=== PATIENT | female | born 1980 | race Caucasian/White ===

== ENCOUNTER → 2017-02-04 | Outpatient (CLI) | payer BC, OTHER | LOC: M WUC 13:05 | DX: R05 Cough (principal) | CPT/HCPCS: 71020 ==

== ENCOUNTER → 2022-02-05 | Outpatient (CLI) | payer OTHER | LOC: M RAD 06:53 → MERGE 07:30 | PROVIDERS: ATTEND Obstetrics & Gynecology | DX: Z36.2 Encounter for other antenatal screening follow-up (principal); O32.2XX0 Maternal care for transverse and oblique lie, not applicable or unspecified; Z3A.22 22 weeks gestation of pregnancy ==

== ENCOUNTER → 2022-03-03 | Outpatient (CLI) | payer OTHER ==
[2022-03-03 17:56] LABS: HEMATOCRIT 37.1 % (36.0-47.0); HEMOGLOBIN 11.9 g/dl (12.0-15.5); MEAN CORPUSCULAR HEMOGLOBIN 29.9 pg (27.0-33.0); MEAN CORPUSCULAR HGB CONC 32.1 g/dl (32.0-36.5); MEAN CORPUSCULAR VOLUME 93.2 fl (80.0-96.0); PLATELET COUNT, AUTOMATED 247 10^3/uL (150-450); RED BLOOD COUNT 3.98 10^6/uL (4.00-5.40); WHITE BLOOD COUNT 16.9 10^3/uL (4.0-10.0)
== END ==
LOC: M PLALAB 15:39
PROVIDERS: ATTEND Advanced Practice Midwife
DX: Z34.82 Encounter for supervision of other normal pregnancy, second trimester (principal)

== ENCOUNTER → 2022-03-16 | Outpatient (CLI) | payer OTHER | LOC: M RAD 14:58 | PROVIDERS: ATTEND Advanced Practice Midwife | DX: Z34.82 Encounter for supervision of other normal pregnancy, second trimester (principal); Z3A.27 27 weeks gestation of pregnancy; Z36.2 Encounter for other antenatal screening follow-up ==

== ENCOUNTER → 2022-04-21 | Outpatient (CLI) | payer OTHER | LOC: M WHC 13:08 | PROVIDERS: ATTEND Advanced Practice Midwife | DX: O24.113 Pre-existing type 2 diabetes mellitus, in pregnancy, third trimester (principal); Z3A.32 32 weeks gestation of pregnancy ==

== ENCOUNTER → 2022-05-07 | Outpatient (REF) | payer OTHER | LOC: M PLALAB 09:22 | PROVIDERS: ATTEND Advanced Practice Midwife | DX: O09.523 Supervision of elderly multigravida, third trimester (principal); Z3A.00 Weeks of gestation of pregnancy not specified ==

== ENCOUNTER → 2022-05-11 | Outpatient (CLI) | payer OTHER | LOC: M WHC 10:25 | PROVIDERS: ATTEND Advanced Practice Midwife | DX: O24.113 Pre-existing type 2 diabetes mellitus, in pregnancy, third trimester (principal); Z3A.35 35 weeks gestation of pregnancy ==

== ENCOUNTER 2022-05-20 07:57 | Inpatient (IN) | payer OTHER ==
[~2022-05-20] VITALS: Ht 149.9 cm; Wt 108.7 kg
[2022-05-20] VITALS (11 sets, daily range): BP systolic 108–136; BP diastolic 53–70
[2022-05-20] MEDS ORDERED: TRANEXAMIC ACID INJection 1,000 MG in NS 100 ML IV PRN (09:00)
[2022-05-20] MEDS ORDERED: CARBOPROST TROMETHAMINE 250 MCG/ML AMP IM PRN (09:00)
[2022-05-20] MEDS ORDERED: LIDOCAINE 1% MDV 20ML VIAL INFIL PRN (09:00)
[2022-05-20] MEDS ORDERED: METHYLERGONOVINE MALEATE 0.2MG/ML 1ML VIAL IM PRN (09:00)
[2022-05-20] MEDS ORDERED: OXYTOCIN INJ 10UNITS/ML 1ML VIAL IM PRN (09:00)
[2022-05-20] MEDS ORDERED: OXYTOCIN DRIP 30 UNITS in IV 1 EA IV PRN ×4 (09:00)
[2022-05-20 09:51] LABS: HEMATOCRIT 30.5 % (36.0-47.0); HEMOGLOBIN 9.7 g/dl (12.0-15.5); MEAN CORPUSCULAR HEMOGLOBIN 27.2 pg (27.0-33.0); MEAN CORPUSCULAR HGB CONC 31.8 g/dl (32.0-36.5); MEAN CORPUSCULAR VOLUME 85.7 fl (80.0-96.0); PLATELET COUNT, AUTOMATED 208 10^3/uL (150-450); RED BLOOD COUNT 3.56 10^6/uL (4.00-5.40); WHITE BLOOD COUNT 11.5 10^3/uL (4.0-10.0)
[2022-05-20] MEDS: miSOPROStol 50MCG 1/2 TABLET PO SCH ×3 (10:05→18:24)
[2022-05-20] MEDS ORDERED: CVS1CAP5 PO (10:20)
[2022-05-20] MEDS ORDERED: METF500T13 PO (10:20)
[2022-05-20] MEDS ORDERED: COLA100C5 PO (10:20)
[2022-05-20] MEDS ORDERED: OMEP1CAP71 PO (10:20)
[2022-05-20] MEDS ORDERED: ASPI81CH48 PO (10:20)
[2022-05-20] MEDS ORDERED: PNV1TABL16 PO (10:22)
[2022-05-20] MEDS ORDERED: HOME MED LIST COMPLETE! XX SCH (10:25)
[2022-05-20] MEDS: metFORMIN (GLUCOPHAGE) 500MG TAB PO SCH ×2 (13:45→18:31)
[2022-05-20] MEDS ORDERED: NALBUPHINE HCL 10 MG/ML 1ML AMP IV PRN (22:50)
[2022-05-20] MEDS ORDERED: PROMETHAZINE 25MG/ML 1ML VIAL IV ONE (22:50)
[2022-05-21] VITALS (12 sets, daily range): BP systolic 94–117; BP diastolic 51–59
[2022-05-21] MEDS: miSOPROStol 50MCG 1/2 TABLET PO SCH ×3 (01:15→05:29)
[2022-05-21] MEDS ORDERED: LACTATED RINGER'S 1000 ML IV ONE (07:30)
[2022-05-21] MEDS ORDERED: LR 500 ML IV PRN (07:40)
[2022-05-21] MEDS: FENTANYL/ROPIVACAINE/NACL BAG 100 ML EPIDURAL SCH ×2 (07:40→14:33)
[2022-05-21] MEDS ORDERED: ePHEDrine SULFATE 25 MG/5 ML(5MG/ML) SYRINGE IVP PRN (07:40)
[2022-05-21] MEDS ORDERED: EPIDURAL/PCA KEYS XX PRN (07:40)
[2022-05-21] MEDS ORDERED: ONDANSETRON 4MG 2ML VIAL IV PRN ×2 (07:40→11:35)
[2022-05-21] MEDS ORDERED: NALOXONE INJ 0.4MG/1ML VIAL IV PRN (07:40)
[2022-05-21] MEDS ORDERED: diphenhydrAMINE 50MG/ML VIAL IV PRN (07:40)
[2022-05-21] MEDS: metFORMIN (GLUCOPHAGE) 500MG TAB PO SCH ×3 (08:00→18:00)
[2022-05-21] MEDS: LR 1,000 ML IV SCH ×4 (09:10→19:35)
[2022-05-21] MEDS ORDERED: ceFAZolin SOD 3 GM IV Place Holder IV ONE (10:00)
[2022-05-21] MEDS ORDERED: OXYTOCIN DRIP 30 UNITS in IV 1 EA IV PRN (10:00)
[2022-05-21] MEDS ORDERED: BICITRA 30ML SOLN UDC PO ONE (10:00)
[2022-05-21] MEDS ORDERED: CARBOPROST TROMETHAMINE 250 MCG/ML AMP IM PRN (10:00)
[2022-05-21] MEDS ORDERED: AZITHROMYCIN INJ 500 MG, VIAL MATE ADAPTER 1 EACH in NS 250 ML IV ONE (10:00)
[2022-05-21] MEDS ORDERED: LIDOCAINE 1% MDV 20ML VIAL INFIL PRN (10:00)
[2022-05-21] MEDS ORDERED: TRANEXAMIC ACID INJection 1,000 MG in NS 100 ML IV PRN (10:00)
[2022-05-21] MEDS ORDERED: ceFAZolin 1GM VIAL As Ordered ONE (10:02)
[2022-05-21] MEDS ORDERED: ceFAZolin 2 GM/D5W 50 ML IV BAG As Ordered ONE (10:02)
[2022-05-21] MEDS ORDERED: BICITRA 30ML SOLN UDC As Ordered ONE (10:02)
[2022-05-21] MEDS ORDERED: AZITHROMYCIN INJ 500MG VIAL As Ordered ONE (10:03)
[2022-05-21] MEDS ORDERED: ceFAZolin SOD 2 GM in IV 1 EA IV ONE (10:15)
[2022-05-21] MEDS ORDERED: ceFAZolin SOD 1 GM in D5W MINI-BAG PLUS 50 ML IV ONE (10:15)
[2022-05-21] MEDS ORDERED: ePHEDrine SULFATE 25 MG/5 ML(5MG/ML) SYRINGE As Ordered ONE ×2 (10:26→10:54)
[2022-05-21] MEDS ORDERED: PHENYLephrine 500MCG 5ML (100MCG/ML) SYRINGE As Ordered ONE ×2 (10:26→10:54)
[2022-05-21] MEDS ORDERED: ONDANSETRON 4MG 2ML VIAL As Ordered ONE (10:49)
[2022-05-21 11:16] LABS: CORD GAS ABE A -0.4; CORD GAS O2 SAT A 46.4 %; CORD GAS PCO2 A 54.6 mmHg; CORD GAS PH A 7.312 UNITS; CORD GAS PO2 A 21.1 mmHg; CORD GAS SBC A 22.8 MEQ/L; CORD GAS TCO2 A 28.7 MEQ/L
[2022-05-21 11:18] LABS: CORD GAS ABE V -1.6; CORD GAS HCO3 V 24.8 MEQ/L; CORD GAS PCO2 V 47.6 mmHg; CORD GAS PH V 7.334 UNITS; CORD GAS SBC V 22.4 MEQ/L; CORD GAS TCO2 V 26.2 MEQ/L
[2022-05-21] MEDS ORDERED: KETOROLAC 60MG 2ML VIAL As Ordered ONE (11:23)
[2022-05-21] MEDS ORDERED: MORPHINE PRES-FREE INJ 10 MG/10 ML VIAL As Ordered ONE (11:25)
[2022-05-21] MEDS ORDERED: COLA100C5 PO (11:31)
[2022-05-21] MEDS ORDERED: ACETAMINOPHEN 500 MG TAB PO PRN (11:35)
[2022-05-21] MEDS ORDERED: RHOGAM 300MCG (1500IU) INJ IM SCH (11:35)
[2022-05-21] MEDS ORDERED: SIMETHICONE 80MG CHEW TAB PO PRN (11:35)
[2022-05-21] MEDS ORDERED: OXYTOCIN DRIP 30 UNITS in IV 1 EA IV SCH ×2 (11:35→12:30)
[2022-05-21] MEDS ORDERED: IBUP80TA PO (11:48)
[2022-05-21] MEDS ORDERED: PERCOCET 5MG/325MG TAB PO PRN (11:50)
[2022-05-21] MEDS ORDERED: MORPHINE 2 MG/ML 1ML VIAL IV PRN (11:50)
[2022-05-21] MEDS ORDERED: PERCOCET PO (11:53)
[2022-05-21] MEDS ORDERED: OXYTOCIN 30UNITS IN 0.9% NaCl 500ML IV BAG As Ordered ONE ×2 (12:02→12:39)
[2022-05-21 12:18] LABS: HEMATOCRIT 29.7 % (36.0-47.0); HEMOGLOBIN 9.3 g/dl (12.0-15.5); MEAN CORPUSCULAR HEMOGLOBIN 27.4 pg (27.0-33.0); MEAN CORPUSCULAR HGB CONC 31.3 g/dl (32.0-36.5); MEAN CORPUSCULAR VOLUME 87.6 fl (80.0-96.0); PLATELET COUNT, AUTOMATED 191 10^3/uL (150-450); RED BLOOD COUNT 3.39 10^6/uL (4.00-5.40); WHITE BLOOD COUNT 17.6 10^3/uL (4.0-10.0)
[2022-05-21 12:40] LABS: CREATININE FOR GFR 0.68 MG/DL (0.55-1.30); GLOMERULAR FILTRATION RATE > 60.0 (>58)
[2022-05-21] MEDS: KETOROLAC 30 MG/ML 1ML VIAL IV SCH ×2 (16:48→22:58)
[2022-05-21] MEDS: DOCUSATE SODIUM 100MG CAPSULE PO SCH (21:00)
[2022-05-21] MEDS: DOCUSATE SODIUM 100MG CAPSULE PO PRN (21:10)
[2022-05-21] MEDS ORDERED: LR 1,000 ML IV ONE (23:25)
[2022-05-22] VITALS (17 sets, daily range): BP systolic 91–126; BP diastolic 50–72
[2022-05-22] MEDS: LR 1,000 ML IV SCH ×3 (01:06→08:26)
[2022-05-22] MEDS: KETOROLAC 30 MG/ML 1ML VIAL IV SCH (05:11)
[2022-05-22 06:43] LABS: HEMATOCRIT 21.3 % (36.0-47.0); MEAN CORPUSCULAR HGB CONC 31.9 g/dl (32.0-36.5); MEAN CORPUSCULAR VOLUME 87.7 fl (80.0-96.0); PLATELET COUNT, AUTOMATED 182 10^3/uL (150-450); RED BLOOD COUNT 2.43 10^6/uL (4.00-5.40); WHITE BLOOD COUNT 17.5 10^3/uL (4.0-10.0)
[2022-05-22 06:52] LABS: HEMOGLOBIN 6.8 g/dl (12.0-15.5)
[2022-05-22] MEDS: PRENATAL VITAMINS CHEWABLE TABLET PO SCH (07:58)
[2022-05-22] MEDS: DOCUSATE SODIUM 100MG CAPSULE PO PRN (07:58)
[2022-05-22] MEDS: DOCUSATE SODIUM 100MG CAPSULE PO SCH ×2 (08:56→20:04)
[2022-05-22] MEDS: ENOXAPARIN 40MG/0.4ML SYRINGE (J1650 PER 10MG) SC SCH (08:58)
[2022-05-22] MEDS: PERCOCET 5MG/325MG TAB PO PRN (10:58)
[2022-05-22] MEDS: IBUPROFEN 800 MG TAB PO SCH ×2 (12:49→20:04)
[2022-05-23] MEDS: PERCOCET 5MG/325MG TAB PO PRN ×3 (00:59→14:16)
[2022-05-23 02:00] VITALS: BP 121/59
[2022-05-23] MEDS: IBUPROFEN 800 MG TAB PO SCH ×2 (05:04→13:31)
[2022-05-23 06:00] VITALS: BP 100/58
[2022-05-23 07:55] LABS: HEMATOCRIT 28.7 % (36.0-47.0); MEAN CORPUSCULAR HEMOGLOBIN 28.2 pg (27.0-33.0); MEAN CORPUSCULAR HGB CONC 32.4 g/dl (32.0-36.5); PLATELET COUNT, AUTOMATED 190 10^3/uL (150-450); WHITE BLOOD COUNT 16.8 10^3/uL (4.0-10.0)
[2022-05-23 07:57] LABS: HEMOGLOBIN 9.3 g/dl (12.0-15.5)
[2022-05-23] MEDS: PRENATAL VITAMINS CHEWABLE TABLET PO SCH (08:09)
[2022-05-23] MEDS: DOCUSATE SODIUM 100MG CAPSULE PO SCH (08:09)
[2022-05-23] MEDS: ENOXAPARIN 40MG/0.4ML SYRINGE (J1650 PER 10MG) SC SCH (08:11)
[2022-05-23] MEDS ORDERED: MEASLES,MUMPS,RUBELLA VACCINE INJ (MMR-II) SC.IMMUN ONE (09:00)
[2022-05-23 10:00] VITALS: BP 117/64
[2022-05-23 14:00] VITALS: BP 131/73
== END 2022-05-23 15:45 | disposition home or self-care (01) | DRG 540 ==
LOC: M LDI 08:20 → M OBS 05-21 13:20
PROVIDERS: ADMIT Advanced Practice Midwife; ATTEND Obstetrics & Gynecology
PROC: 3E0P7GC Introduction of Other Therapeutic Substance into Female Reproductive, Via Natural or Artificial Opening (ICD-10-PCS; 2022-05-20)
PROC: 10D00Z1 Extraction of Products of Conception, Low, Open Approach (ICD-10-PCS; principal; 2022-05-21 10:10)
PROC: 30233N1 Transfusion of Nonautologous Red Blood Cells into Peripheral Vein, Percutaneous Approach (ICD-10-PCS; 2022-05-22)
DX: O24.425 Gestational diabetes mellitus in childbirth, controlled by oral hypoglycemic drugs (principal); Z3A.39 39 weeks gestation of pregnancy; O09.523 Supervision of elderly multigravida, third trimester; O09.813 Supervision of pregnancy resulting from assisted reproductive technology, third trimester; O99.214 Obesity complicating childbirth; E66.9 Obesity, unspecified; Z79.84 Long term (current) use of oral hypoglycemic drugs; Z79.82 Long term (current) use of aspirin; Z79.899 Other long term (current) drug therapy; O61.0 Failed medical induction of labor; O10.02 Pre-existing essential hypertension complicating childbirth; O99.02 Anemia complicating childbirth; D64.9 Anemia, unspecified; Z37.0 Single live birth

== ENCOUNTER → 2022-07-13 | Outpatient (CLI) | payer OTHER ==
[~2022-07-13] MED LIST: ASPI81CH48 PO; COLA100C5 PO; CVS1CAP5 PO; IBUP80TA PO; METF500T13 PO; OMEP1CAP71 PO; PERCOCET PO; PNV1TABL16 PO
[2022-07-13 14:04] LABS: HCG, SERUM QUANTITATIVE < 2.6 MIU/ML (<4.2); HEMATOCRIT 39.2 % (36.0-47.0); HEMOGLOBIN 12.6 g/dl (12.0-15.5); MEAN CORPUSCULAR HEMOGLOBIN 28.6 pg (27.0-33.0); MEAN CORPUSCULAR HGB CONC 32.1 g/dl (32.0-36.5); MEAN CORPUSCULAR VOLUME 88.9 fl (80.0-96.0); PLATELET COUNT, AUTOMATED 245 10^3/uL (150-450); RED BLOOD COUNT 4.41 10^6/uL (4.00-5.40); WHITE BLOOD COUNT 8.6 10^3/uL (4.0-10.0)
[2022-07-13 14:56] LABS: HEMOGLOBIN A1c 5.1 % (4.0-6.0)
== END ==
LOC: M PLALAB 09:54
PROVIDERS: ATTEND Obstetrics & Gynecology
DX: Z39.2 Encounter for routine postpartum follow-up (principal)

== ENCOUNTER → 2023-09-02 | Outpatient (CLI) | payer OTHER | LOC: M WHC 14:02 | PROVIDERS: ATTEND Advanced Practice Midwife | DX: Z12.31 Encounter for screening mammogram for malignant neoplasm of breast (principal); R92.313 Mammographic fatty tissue density, bilateral breasts ==